=== PATIENT | female | born 1965 | race Caucasian/White ===

== ENCOUNTER 2018-05-11 07:28 | Emergency (ER) | payer OTHER ==
[2018-05-11 07:42] VITALS: BP 101/67
[2018-05-11] MEDS ORDERED: BUFFERED LIDOCAINE 10 ML SYRINGE SUBQ STA (07:45)
--- NOTE | 2018-05-11 07:46 | ED Physician Documentation ---
PD HPI UPPER EXT INJURY - Stated complaint Stated Complaint: R WRIST LAC - Chief complaint Chief Complaint: Laceration - History obtained from History obtained from: Patient - History of Present Illness Location: Right, Wrist Type of injury: Laceration Where injury occurred: Home Timing - onset: Today Timing - duration: Minutes Timing - details: Abrupt onset, Still present Improved by: Rest Worsened by: Moving, Palpating Associated symptoms: No: Weakness, Numbness, Tingling, Swelling Contributing factors: No: Anticoagulated Similar symptoms before: Diagnosis (laceration) Recently seen: Not recently seen - Additonal information Additional information: 52-year-old female lacerated her right wrist 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 Review of Systems Constitutional: denies: Fever Eyes: denies: Decreased vision Respiratory: denies: Cough GI: denies: Vomiting Skin: reports: Laceration (s). denies: Rash, Lesions Musculoskeletal: reports: Extremity pain Neurologic: denies: Generalized weakness, Focal weakness, Numbness PD PAST MEDICAL HISTORY - Present Medications Home Medications: Ambulatory Orders Medication Instructions Recorded Confirmed Estradiol [Vagifem] 10 05/11/18 - Allergies Allergies/Adverse Reactions: Allergies Allergy/AdvReac Type Severity Reaction Status Date / Time erythromycin base Allergy Rash Verified 05/11/18 07:42 [From Ilosone] nitrofurantoin Allergy Hives Verified 05/11/18 07:42 PD ED PE NORMAL - Vitals Vital signs reviewed: Yes (normal ) - General General: Alert and oriented X 3, No acute distress, Well developed/nourished - HEENT HEENT: Atraumatic, PERRL, EOMI - Respiratory Respiratory: No respiratory distress - Derm Derm: Normal color, Warm and dry, No rash - Extremities Extremities: No deformity, No edema, Other (There is a 2cm laceration to the volar surface of the right wrist over the distal ulnar area. There is not involvment of deeper structures and distal n/v is intact. ) - Neuro Neuro: Alert and oriented X 3, networking administrator 2-12 intact, No motor deficit, No sensory deficit, Normal speech Eye Opening: Spontaneous Motor: Obeys Commands Verbal: Oriented GCS Score: 15 - Psych Psych: Normal mood, Normal affect Results - Vitals Vitals: Vital Signs - 24 hr 05/11/18 07:37 Temperature 36.9 C Heart Rate 88 Respiratory 16 Rate Blood Pressure 101/67 O2 Saturation 100 Oxygen O2 Source Room air Procedures - Laceration (location) right wrist Length in cm: 2 Wound type: Linear, Clean Neurovascular status: Sensory intact, Motor intact, Vascular intact Tendon involvement: Tendon intact Anesthesia: Lidocaine 1%, With bicarb Wound Preparation: Hibiclens, Irrigated copiously NS, Wound explored, To the base Skin layer closure: Nylon, Interrupted, Size #-0 - enter number (4-0), Sutures - enter # (4) Other: Patient tolerated well, No complications, Neurovascular intact, Dressing applied, Tetanus UTD Complexity: Simple PD MEDICAL DECISION MAKING - ED course Complexity details: considered differential, d/w patient ED course: 52 y/o female with a wrist laceration is sutured. Departure - Departure Disposition: 01 Home, Self Care Clinical Impression: Wrist laceration Qualifiers: Encounter type: initial encounter Laterality: right Qualified Code(s): S61.511A - Laceration without foreign body of right wrist, initial encounter Condition: Stable Instructions: ED Laceration Ext Sutr Stap Tape Follow-Up: HILL PETERSON [Primary Care Provider] - Comments: sutures will need to be removed in 7-10 days.
== END 2018-05-11 08:25 | disposition home or self-care (01) ==
LOC: ED 07:28
DX: S61.511A Laceration without foreign body of right wrist, initial encounter (principal); W29.0XXA Contact with powered kitchen appliance, initial encounter; Y93.G1 Activity, food preparation and clean up; Y92.009 Unspecified place in unspecified non-institutional (private) residence as the place of occurrence of the external cause
CPT/HCPCS: 12001; 99282; 99283